=== PATIENT | female | born 1940 | race African-American/Black ===

== ENCOUNTER 2018-09-19 07:02 | Emergency (ER) | payer OTHER, MEDICARE ==
--- OUTSIDE RECORDS SUMMARY | 2018-09-19 07:05 | XMS REPORT ---
:1940 Author Organization [facility] Address [address] [place] [address] Dr. Mcghee [address] [place] [id number] Care Team Providers Name Role Phone Unavailable Unavailable Unavailable Problems This patient has no known problems. Allergies, Adverse Reactions, Alerts This patient has no known allergies or adverse reactions. Medications This patient has no known medications.
--- NOTE | 2018-09-19 07:24 | EDPHYS ---
Physician Documentation [facility] Name: Eunice Seals Age: 78 yrs Sex: Female : 1940 Arrival Date: 09/19/2018 Time: 07:05 Bed 16 Private MD: Blaise Mortensen B ED Physician Misael Mathew HPI: 09/19 07:18 This 78 yrs old Black Female presents to ER via Unassigned with complaints of Leg rn Swelling. 07:18 Reports bilateral leg pain, for about 1 month, no fever/trauma/redness/rash. 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 Has been on gabapentin in past but taken off for unknown reason. Denies calf pain with exertion. Reports still works and pain starts in feet and radiates upward. Pain worse at night. Improved in AM. . Onset: The symptoms/episode began/occurred 1 month(s) ago. Severity of symptoms: At their worst the symptoms were mild in the emergency department the symptoms have improved. The patient has not experienced similar symptoms in the past. The patient has not recently seen a physician. Historical: - Allergies: 07:06 Lipitor; aa5 07:06 metformin; aa5 07:06 PENICILLINS; aa5 - Home Meds: 07:08 repaglinide 2 mg oral tab 1 tab 3 times per day [Active]; proglitazone 30mg daily aa5 [Active]; amlodipine 10 mg tab 1 tab once daily [Active]; levothyroxine 88 mcg tab 1 tab once daily [Active]; simvastatin 10 mg Oral tab 1 tab once daily [Active]; tizanidine 2 mg oral cap 3 times a day [Active]; hydroxyzine HCl 25 mg Oral tab at bedtime [Active]; ezetimibe oral oral 10mg daily [Active]; morantik 25mg [Active]; temisartan 80mg [Active]; latanoprost 0.005 % ophthalmic drop [Active]; - PMHx: 07:06 Diabetes - NIDDM; Hyperlipidemia; Hypertension; aa5 07:08 Thyroid problem; aa5 - PSHx: 07:08 Back; aa5 - Immunization history:: Flu vaccine is not up to date. - Social history:: Smoking status: Patient/guardian denies using tobacco. - Family history:: not pertinent. - Ebola Screening: : No symptoms or risks identified at this time. - Hospitalizations: : No recent hospitalization is reported. ROS: 07:18 Constitutional: Negative for fever, chills, and weight loss, Cardiovascular: Negative rn for chest pain, palpitations, and edema, Respiratory: Negative for shortness of breath, cough, wheezing, and pleuritic chest pain, MS/Extremity: + bilateral leg burning sensation Skin: Negative for injury, rash, and discoloration, Neuro: Negative for headache, weakness, numbness, tingling, and seizure. Exam: 07:18 Constitutional: This is a well developed, well nourished patient who is awake, alert, rn and in no acute distress. Respiratory: No increased work of breathing, no retractions or nasal flaring. Speaking full sentences Skin: Warm, dry with normal turgor. Normal color with no rashes, no lesions, and no evidence of cellulitis. MS/ Extremity: Pulses equal, no cyanosis. Neurovascular intact. Full, normal range of motion. Equal circumference. No tenderness of either LE. Neuro: Awake and alert, GCS 15, oriented to person, place, time, and situation. Cranial nerves II-XII grossly intact. Motor strength 5/5 in all extremities. Sensory grossly intact. Cerebellar exam normal. Normal gait. Vital Signs: 07:08 BP 126 / 67; Pulse 91; Resp 16 S; Temp 98.2(O); Pulse Ox 100% on R/A; Weight 59.87 kg aa5 (R); Height 5 ft. 4 in. (162.56 cm) (R); Pain 6/10; 07:08 Body Mass Index 22.66 (59.87 kg, 162.56 cm) aa5 MDM: 07:09 Patient medically screened. rn 07:18 Differential Diagnosis peripheral vascular disease, diabetic neuropathy, radiculopathy. rn Data reviewed: vital signs, nurses notes, and as a result, I will discharge patient. Counseling: I had a detailed discussion with the patient and/or guardian regarding: the historical points, exam findings, and any diagnostic results supporting the discharge/admit diagnosis, the need for outpatient follow up, to return to the emergency department if symptoms worsen or persist or if there are any questions or concerns that arise at home. Special discussion: I discussed with the patient/guardian in detail that at this point there is no indication for admission to the hospital. It is understood, however, that if the symptoms persist or worsen the patient needs to return immediately for re-evaluation. Based on the history and exam findings, there is no indication for further emergent testing or inpatient evaluation. I discussed with the patient/guardian the need to see the primary care provider for further evaluation of the symptoms. ED course: Equal circumference of legs, no sign of infection, no trauma, present for a month or more, more likely diabetic neuropathy in stocking distribution, will refer back to pcp for medication reconciliation and maybe needs to be back on gabapentin. . Administered Medications: No medications were administered Disposition: 09/19/18 07:24 Discharged to Home. Impression: Diabetic polyneuropathy. - Condition is Stable. - Discharge Instructions: Peripheral Neuropathy, Diabetic Neuropathy. - Medication Reconciliation Form, Thank You Letter, Antibiotic Education, Prescription Opioid Use form. - Follow up: Blaise Mortensen MD; When: 2 - 3 days; Reason: Recheck today's complaints, Re-evaluation by your physician. - Problem is an ongoing problem. - Symptoms have improved. Signatures: Misael Mathew MD MD rn Calderon, Audri, RN RN aa5 Corrections: (The following items were deleted from the chart) 07:39 07:24 09/19/2018 07:24 Discharged to Home. Impression: Diabetic polyneuropathy. aa5 Condition is Stable. Forms are Medication Reconciliation Form, Thank You Letter, Antibiotic Education, Prescription Opioid Use. Follow up: Blaise Mortensen; When: 2 - 3 days; Reason: Recheck today's complaints, Re-evaluation by your physician. Problem is an ongoing problem. Symptoms have improved. rn
--- NOTE | 2018-09-19 07:24 | ER ---
Nurse's Notes [facility] Name: Eunice Seals Age: 78 yrs Sex: Female : 1940 Arrival Date: 09/19/2018 Time: 07:05 Bed 16 Private MD: Blaise Mortensen B Diagnosis: Diabetic polyneuropathy Presentation: 09/19 07:06 Presenting complaint: Patient states: "I've been dealing with leg swelling since about aa5 a month ago". Pt c/o cezar leg swelling and burning radiating up cezar legs. 07:06 Transition of care: patient was not received from another setting of care. Onset of aa5 symptoms was 2018. Risk Assessment: Do you want to hurt yourself or someone else? Patient reports no desire to harm self or others. Initial Sepsis Screen: Does the patient meet any 2 criteria? No. Patient's initial sepsis screen is negative. Does the patient have a suspected source of infection? No. Patient's initial sepsis screen is negative. Care prior to arrival: None. 07:06 Acuity: JOSE 4 aa5 07:06 Method Of Arrival: Ambulatory aa5 Historical: - Allergies: 07:06 Lipitor; aa5 07:06 metformin; aa5 07:06 PENICILLINS; aa5 - Home Meds: 07:08 repaglinide 2 mg oral tab 1 tab 3 times per day [Active]; proglitazone 30mg daily aa5 [Active]; amlodipine 10 mg tab 1 tab once daily [Active]; levothyroxine 88 mcg tab 1 tab once daily [Active]; simvastatin 10 mg Oral tab 1 tab once daily [Active]; tizanidine 2 mg oral cap 3 times a day [Active]; hydroxyzine HCl 25 mg Oral tab at bedtime [Active]; ezetimibe oral oral 10mg daily [Active]; morantik 25mg [Active]; temisartan 80mg [Active]; latanoprost 0.005 % ophthalmic drop [Active]; - PMHx: 07:06 Diabetes - NIDDM; Hyperlipidemia; Hypertension; aa5 07:08 Thyroid problem; aa5 - PSHx: 07:08 Back; aa5 - Immunization history:: Flu vaccine is not up to date. - Social history:: Smoking status: Patient/guardian denies using tobacco. - Family history:: not pertinent. - Ebola Screening: : No symptoms or risks identified at this time. - Hospitalizations: : No recent hospitalization is reported. Screenin:08 Abuse screen: Denies threats or abuse. Nutritional screening: No deficits noted. aa5 Tuberculosis screening: No symptoms or risk factors identified. Fall Risk None identified. Assessment: 07:08 General: Appears comfortable, Behavior is calm, cooperative. Pain: Complains of pain in aa5 right leg and left leg Pain radiates to up the leg Pain currently is 6 out of 10 on a pain scale. Quality of pain is described as burning, Pain began 1 month ago Is continuous. Neuro: Level of Consciousness is awake, alert, obeys commands, Oriented to person, place, time, situation, Gait is steady. Cardiovascular: Heart tones S1 S2 present Pulses are 3+ in right dorsalis pedis artery and left dorsalis pedis artery Mild swelling noted to bilateral legs, non-pitting, shins appear shiny. Rhythm is regular. Respiratory: Airway is patent Respiratory effort is even, unlabored, Respiratory pattern is regular, symmetrical. GI: No signs and/or symptoms were reported involving the gastrointestinal system. : No signs and/or symptoms were reported regarding the genitourinary system. EENT: No signs and/or symptoms were reported regarding the EENT system. Derm: Skin is dry, Skin is normal, Skin temperature is warm. Musculoskeletal: Range of motion: intact in all extremities. 07:38 Neuro: Level of Consciousness is awake, alert, obeys commands, Oriented to person, aa5 place, time, situation. Respiratory: Airway is patent Respiratory effort is even, unlabored, Respiratory pattern is regular, symmetrical. Derm: Skin is dry, Skin is normal, Skin temperature is warm. Vital Signs: 07:08 BP 126 / 67; Pulse 91; Resp 16 S; Temp 98.2(O); Pulse Ox 100% on R/A; Weight 59.87 kg aa5 (R); Height 5 ft. 4 in. (162.56 cm) (R); Pain 6/10; 07:08 Body Mass Index 22.66 (59.87 kg, 162.56 cm) aa5 ED Course: 07:05 Patient arrived in ED. am2 07:06 Blaise Mortensen MD is Private Physician. am2 07:06 Arm band placed on Patient placed in an exam room, on a stretcher. aa5 07:06 Patient has correct armband on for positive identification. Placed in gown. Bed in low aa5 position. Call light in reach. Side rails up X 1. 07:09 Misael Mathew MD is Attending Physician. rn 07:20 Elysia Gay RN is Primary Nurse. aa5 07:23 Triage completed. aa5 07:23 Blaise Mortensen MD is Referral Physician. rn 07:38 No provider procedures requiring assistance completed. Patient did not have IV access aa5 during this emergency room visit. Administered Medications: No medications were administered Outcome: 07:24 Discharge ordered by . rn 07:38 Discharged to home ambulatory. aa5 07:38 Condition: good 07:38 Discharge instructions given to patient, Instructed on discharge instructions, follow up and referral plans. Demonstrated understanding of instructions, follow-up care. 07:39 Patient left the ED. aa5 Signatures: Misael Mathew MD MD rn Calderon, Audri, RN RN aa5 Karie Urena
[2018-09-19 07:46] VITALS: BP 126/67; TEMP 98.2; O2SAT 100
== END 2018-09-19 07:39 | disposition home or self-care (01) ==
LOC: ER 07:02
DX: E11.42 Type 2 diabetes mellitus with diabetic polyneuropathy (principal); I10 Essential (primary) hypertension; E78.5 Hyperlipidemia, unspecified; Z88.0 Allergy status to penicillin; Z88.8 Allergy status to other drugs, medicaments and biological substances
CPT/HCPCS: 99281

== ENCOUNTER 2019-06-03 04:14 | Emergency (ER) | payer OTHER ==
--- OUTSIDE RECORDS SUMMARY | 2019-06-03 04:17 | XMS REPORT ---
:1940 [facility] Address [address] [place] [address] Dr. Mcghee [address] [place] [id number] Care Team Providers Name Role Phone Unavailable Unavailable Unavailable Problems This patient has no known problems. Allergies, Adverse Reactions, Alerts This patient has no known allergies or adverse reactions. Medications This patient has no known medications.
[2019-06-03 05:16] LABS: Protime INR 1.1
[2019-06-03 05:17] LABS: Absolute Lymphocytes (CBC) 1.6 K/uL (0.7-4.9); Basophils % 0.5 % (0-1.3); Lymphocytes % 25.5 % (15.3-44.8); MPV 8.5 fL (7.6-11.3); RBC Red Blood Cell Count 3.86 M/uL (3.86-4.86)
[2019-06-03 05:33] LABS: ALT/SGPT 24 U/L (12-78); AST/SGOT 20 U/L (15-37); Albumin 3.7 g/dL (3.4-5.0); Alkaline Phosphatase 97 U/L (45-117); BUN Blood Urea Nitrogen 17 mg/dL (7-18); Bicarbonate 28 mmol/L (21-32); Bilirubin Direct 0.1 mg/dL (0-0.2); Bilirubin Total 0.4 mg/dL (0.2-1.0); Glucose Level 126 mg/dL (74-106); Magnesium 2.1 mg/dL (1.8-2.4); NT PRO-BNP 55 pg/mL (<450); Protein, Total 6.7 g/dL (6.4-8.2); Sodium Level 140 mmol/L (136-145); Troponin (Emerg Dept Use Only) < 0.02 ng/mL (0.0-0.045)
--- NOTE | 2019-06-03 06:53 | EKG ---
Test Date: 2019-06-03 Test Time: 04:27:16 Clerk Supervisor: JOSÉ MIGUEL MEASUREMENT RESULTS: Intervals: Rate: 85 IA: 148 QRSD: 74 QT: 398 QTc: 473 [place]: P: 74 IA: 148 QRS: 54 T: 66 INTERPRETIVE STATEMENTS: Normal sinus rhythm Biatrial enlargement Abnormal ECG Compared to ECG 03/28/2016 11:18:41 Atrial abnormality now present Ventricular premature complex(es) no longer present Prolonged QT interval no longer present Electronically Signed On 06-03-19 06:53:01 TOW FEEDER by Heath Dent
--- NOTE | 2019-06-03 07:57 | ER ---
Nurse's Notes [facility] Name: Eunice Seals Age: 79 yrs Sex: Female : 1940 Arrival Date: 06/03/2019 Time: 04:17 Bed 7 Private MD: Diagnosis: Concussion without loss of consciousness;Chest pain, unspecified Presentation: 06/03 04:23 Presenting complaint: Patient states: headache since yesterday evening. pt stated she ak1 fell last Sunday hitting the back of her head, couldn't sleep tonight so she came here. pt stated she has sharp intermittent chest pain to center of her chest that last 1 minuet. Transition of care: patient was not received from another setting of care. Onset of symptoms was June 03, 2019. Risk Assessment: Do you want to hurt yourself or someone else? Patient reports no desire to harm self or others. Initial Sepsis Screen: Does the patient meet any 2 criteria? No. Patient's initial sepsis screen is negative. Does the patient have a suspected source of infection? No. Patient's initial sepsis screen is negative. Care prior to arrival: None. 04:23 Method Of Arrival: Ambulatory ak1 04:23 Acuity: JOSE 3 ak1 Triage Assessment: 04:27 General: Appears in no apparent distress. Behavior is calm, cooperative. ak1 Historical: - Allergies: 04:27 Lipitor; ak1 04:27 metformin; ak1 04:27 PENICILLINS; ak1 - Home Meds: 05:31 aspirin 81 mg Oral chew 1 tab [Active]; hydroxyzine HCl 25 mg Oral tab 1 tab at bedtime ea [Active]; levothyroxine 88 mcg tab 1 tab once daily [Active]; ezetimibe Oral 10mg daily [Active]; temisartan 80mg [Active]; repaglinide 2 mg Oral tab 1 tab 3 times per day [Active]; simvastatin 10 mg Oral tab 1 tab once daily [Active]; - PMHx: 04:27 Diabetes - NIDDM; Hyperlipidemia; Hypertension; Thyroid problem; ak1 - PSHx: 04:27 Back sx; Cholecystectomy; Appendectomy; Hysterectomy; ak1 - Immunization history:: Flu vaccine is up to date. - Social history:: Smoking status: Patient/guardian denies using tobacco. - Ebola Screening: : No symptoms or risks identified at this time. Screenin:29 Abuse screen: Denies threats or abuse. Nutritional screening: No deficits noted. ea Tuberculosis screening: No symptoms or risk factors identified. Fall Risk None identified. Assessment: 04:28 General: Appears in no apparent distress. Behavior is calm, cooperative, appropriate ea for age. Pain: Complains of pain in chest Pain does not radiate. Neuro: Level of Consciousness is awake, alert, obeys commands, Oriented to person, place, time, situation. Cardiovascular: Patient's skin is warm and dry. Respiratory: Airway is patent Respiratory effort is even, unlabored, Respiratory pattern is regular, symmetrical. Derm: Skin is pink, warm \T\ dry. 05:32 Reassessment: Patient and/or family updated on plan of care and expected duration. Pain ea level reassessed. Patient is alert, oriented x 3, equal unlabored respirations, skin warm/dry/pink. 06:07 Reassessment: Patient and/or family updated on plan of care and expected duration. Pain ea level reassessed. Patient is alert, oriented x 3, equal unlabored respirations, skin warm/dry/pink. Awaiting on CT results. 07:15 Reassessment: Patient and/or family updated on plan of care and expected duration. Pain vc level reassessed. Patient is alert, oriented x 3, equal unlabored respirations, skin warm/dry/pink. Patient denies pain at this time. Patient states feeling better. Vital Signs: 04:27 BP 192 / 91; Pulse 82; Resp 16; Temp 97.7(TE); Pulse Ox 100% on R/A; Weight 56.25 kg ak1 (R); Height 5 ft. 4 in. (162.56 cm) (R); Pain 8/10; 05:33 BP 163 / 81; Pulse 79; Resp 18; Pulse Ox 98% on R/A; ea 06:07 BP 164 / 75; Pulse 71; Resp 18; Temp 97.6; Pulse Ox 98% ; ea 07:15 BP 175 / 82; Pulse 70; Resp 14; Pulse Ox 100% on R/A; Pain 0/10; vc 08:00 BP 159 / 75; Pulse 57; Resp 15; Temp 98.0(TE); Pulse Ox 100% on R/A; Pain 0/10; vc 04:27 Body Mass Index 21.28 (56.25 kg, 162.56 cm) ak1 ED Course: 04:17 Patient arrived in ED. jg7 04:19 Esa Simpson MD is Attending Physician. tw4 04:26 Triage completed. ak1 04:27 Arm band placed on Patient placed in an exam room, on a stretcher, on pulse oximetry, ak1 Patient notified of wait time. 04:28 Tianna Rudd, RN is Primary Nurse. ea 04:30 Patient has correct armband on for positive identification. Bed in low position. Call ea light in reach. Side rails up X2. ball rolling machine operator on. 04:30 Patient maintains SpO2 saturation greater than 95% on room air. ea 04:33 Inserted saline lock: 20 gauge in left antecubital area, using aseptic technique. Blood ea collected. Per Sakshi GODDARD. 07:19 Repeat lab(s) drawn. by ar, sent to lab. vc 07:25 Troponin (emerg Dept Use Only) Sent. vc 08:06 No provider procedures requiring assistance completed. vc 08:20 IV discontinued, intact, bleeding controlled, No redness/swelling at site. Pressure aa5 dressing applied. Administered Medications: No medications were administered Outcome: 07:57 Discharge ordered by . ma2 08:19 Discharged to home ambulatory. aa5 08:19 Condition: good 08:19 Discharge instructions given to patient, Instructed on discharge instructions, follow up and referral plans. Demonstrated understanding of instructions, follow-up care. 08:21 Patient left the ED. aa5 Signatures: Elysia Gay RN RN aa5 Lyla Busch RN RN ak1 Tianna Rudd RN RN ea Alzahri, Mohammad, MD MD ma2 Wadley, Terrence, MD MD tw4 Wendy Troy jg7 Carrie Smith RN RN vc Corrections: (The following items were deleted from the chart) 07:25 07:25 Pain: Pain began vc vc
--- NOTE | 2019-06-03 07:58 | EDPHYS ---
Physician Documentation [facility] Name: Eunice Seals Age: 79 yrs Sex: Female : 1940 Arrival Date: 06/03/2019 Time: 04:17 Bed 7 Private MD: ED Physician Esa Simpson HPI: 06/03 05:09 This 79 yrs old Black Female presents to ER via Ambulatory with complaints of Chest tw4 Pain, Headache. 05:09 The patient or guardian reports chest pain that is located primarily in the anterior tw4 chest wall, left. Onset: just prior to arrival. The pain does not radiate. Associated signs and symptoms: The patient has no apparent associated signs or symptoms. The chest pain is described as sharp. Duration: The patient or guardian reports a single episode, that is now resolved. Severity of pain: At its worst the pain was mild in the emergency department the pain is unchanged. Historical: - Allergies: 04:27 Lipitor; ak1 04:27 metformin; ak1 04:27 PENICILLINS; ak1 - Home Meds: 05:31 aspirin 81 mg Oral chew 1 tab [Active]; hydroxyzine HCl 25 mg Oral tab 1 tab at bedtime ea [Active]; levothyroxine 88 mcg tab 1 tab once daily [Active]; ezetimibe Oral 10mg daily [Active]; temisartan 80mg [Active]; repaglinide 2 mg Oral tab 1 tab 3 times per day [Active]; simvastatin 10 mg Oral tab 1 tab once daily [Active]; - PMHx: 04:27 Diabetes - NIDDM; Hyperlipidemia; Hypertension; Thyroid problem; ak1 - PSHx: 04:27 Back sx; Cholecystectomy; Appendectomy; Hysterectomy; ak1 - Immunization history:: Flu vaccine is up to date. - Social history:: Smoking status: Patient/guardian denies using tobacco. - Ebola Screening: : No symptoms or risks identified at this time. ROS: 05:09 Constitutional: Negative for fever, chills, and weight loss, Eyes: Negative for injury, tw4 pain, redness, and discharge. 05:09 Respiratory: Negative for shortness of breath, cough, wheezing, and pleuritic chest pain, Abdomen/GI: Negative for abdominal pain, nausea, vomiting, diarrhea, and constipation, Back: Negative for injury and pain, MS/Extremity: Negative for injury and deformity, Skin: Negative for injury, rash, and discoloration, Neuro: Negative for headache, weakness, numbness, tingling, and seizure. 05:09 Cardiovascular: Positive for chest pain, Negative for edema, orthopnea, palpitations. Exam: 05:09 Constitutional: This is a well developed, well nourished patient who is awake, alert, tw4 and in no acute distress. Head/Face: Normocephalic, atraumatic. Chest/axilla: Normal chest wall appearance and motion. Nontender with no deformity. No lesions are appreciated. Cardiovascular: Regular rate and rhythm with a normal S1 and S2. No gallops, murmurs, or rubs. Normal PMI, no JVD. No pulse deficits. Respiratory: Lungs have equal breath sounds bilaterally, clear to auscultation and percussion. No rales, rhonchi or wheezes noted. No increased work of breathing, no retractions or nasal flaring. Abdomen/GI: Soft, non-tender, with normal bowel sounds. No distension or tympany. No guarding or rebound. No evidence of tenderness throughout. Back: No spinal tenderness. No costovertebral tenderness. Full range of motion. MS/ Extremity: Pulses equal, no cyanosis. Neurovascular intact. Full, normal range of motion. Neuro: Awake and alert, GCS 15, oriented to person, place, time, and situation. Cranial nerves II-XII grossly intact. Motor strength 5/5 in all extremities. Sensory grossly intact. Cerebellar exam normal. Normal gait. Vital Signs: 04:27 BP 192 / 91; Pulse 82; Resp 16; Temp 97.7(TE); Pulse Ox 100% on R/A; Weight 56.25 kg ak1 (R); Height 5 ft. 4 in. (162.56 cm) (R); Pain 8/10; 05:33 BP 163 / 81; Pulse 79; Resp 18; Pulse Ox 98% on R/A; ea 06:07 BP 164 / 75; Pulse 71; Resp 18; Temp 97.6; Pulse Ox 98% ; ea 07:15 BP 175 / 82; Pulse 70; Resp 14; Pulse Ox 100% on R/A; Pain 0/10; vc 08:00 BP 159 / 75; Pulse 57; Resp 15; Temp 98.0(TE); Pulse Ox 100% on R/A; Pain 0/10; vc 04:27 Body Mass Index 21.28 (56.25 kg, 162.56 cm) ak1 MDM: 04:20 Patient medically screened. tw4 07:55 Differential diagnosis: costochondritis, esophagitis, gastritis. Data reviewed: vital ma2 signs, nurses notes. Counseling: I had a detailed discussion with the patient and/or guardian regarding: the historical points, exam findings, and any diagnostic results supporting the discharge/admit diagnosis, the presence of at least one elevated blood pressure reading (>120/80) during this emergency department visit, the need for outpatient follow up. ED course: signed out to me by dr. awad as atypical chest pain alexander score zero,, repeated trop in negative no chest pain in er.. will discharge home . 06/03 04:20 Order name: Basic Metabolic Panel tw4 06/03 04:20 Order name: CBC with Diff tw4 06/03 04:20 Order name: LFT's tw4 06/03 04:20 Order name: Magnesium tw4 06/03 04:20 Order name: NT PRO-BNP tw4 06/03 04:20 Order name: PT-INR tw4 06/03 04:20 Order name: Troponin (emerg Dept Use Only) tw4 06/03 05:18 Order name: Protime (+INR); Complete Time: 06:08 EDMS 06/03 05:22 Order name: CBC with Automated Diff; Complete Time: 06:08 EDMS 06/03 05:33 Order name: Basic Metabolic Panel; Complete Time: 06:08 EDMS 06/03 05:33 Order name: Liver (Hepatic) Function; Complete Time: 06:08 EDMS 06/03 05:33 Order name: Troponin (Emerg Dept Use Only); Complete Time: 06:08 EDMS 06/03 05:33 Order name: NT PRO-BNP; Complete Time: 06:08 EDMS 06/03 05:33 Order name: Magnesium; Complete Time: 06:08 EDMS 06/03 04:20 Order name: XRAY Chest (1 view) tw4 06/03 04:20 Order name: EKG; Complete Time: 04:21 tw4 06/03 04:20 Order name: Cardiac monitoring; Complete Time: 04:30 tw4 12/17 04:20 Order name: EKG - Nurse/Tech; Complete Time: 04:30 06/03 04:20 Order name: IV Saline Lock; Complete Time: 04:35 06/03 04:20 Order name: Labs collected and sent; Complete Time: 04:35 06/03 04:20 Order name: O2 Per Protocol; Complete Time: 04:30 06/03 04:20 Order name: O2 Sat Monitoring; Complete Time: 04:30 06/03 05:08 Order name: CT Head Brain wo Cont 06/03 06:54 Order name: Troponin (emerg Dept Use Only) 4 06/03 07:46 Order name: Troponin (Emerg Dept Use Only) EDCO EC:09 Rate is 85 beats/min. Rhythm is regular. QRS [place] is Normal. [place] interval is normal. QRS tw4 interval is normal. QT interval is normal. No Q waves. T waves are Normal. No ST changes noted. Clinical impression: Normal ECG. Interpreted by me. Reviewed by me. Administered Medications: No medications were administered Disposition: 06/03/19 07:57 Discharged to Home. Impression: Concussion without loss of consciousness, Chest pain, unspecified. - Condition is Stable. - Discharge Instructions: Nonspecific Chest Pain, Head Injury, Adult, Pain Without a Known Cause. - Antibiotic Education, Medication Reconciliation Form, SBAR form, Thank You Letter, Prescription Opioid Use form. - Follow up: Private Physician; When: Upon discharge from the Emergency Department; Reason: Recheck today's complaints, Continuance of care. - Problem is new. - Symptoms have improved. Signatures: Dispatcher [employer] EDCO Elysia Gay, RN RN aa5 Lyla Busch RN RN ak1 Tianna Rudd RN RN ea Alzahri, Mohammad, MD MD ma2 Esa Simpson MD MD tw4 Corrections: (The following items were deleted from the chart) 08:21 07:57 06/03/2019 07:57 Discharged to Home. Impression: Concussion without loss of aa5 consciousness; Chest pain, unspecified. Condition is Stable. Discharge Instructions: Nonspecific Chest Pain, Head Injury, Adult, Pain Without a Known Cause. Forms are Medication Reconciliation Form, SBAR form, Thank You Letter, Prescription Opioid Use, Antibiotic Education. Follow up: Private Physician; When: Upon discharge from the Emergency Department; Reason: Recheck today's complaints, Continuance of care. Problem is new. Symptoms have improved. ma2
--- NOTE | 2019-06-03 08:13 | RAD REPORT ---
EXAM DESCRIPTION: [facility] Single View06/03/2019 4:54 am CLINICAL HISTORY: Chest pain COMPARISON: November 2018 FINDINGS: The lungs appear clear of acute infiltrate. The heart is normal size IMPRESSION: No acute abnormalities displayed
[2019-06-03 08:33] VITALS: TEMP 97.6
[2019-06-03 08:35] VITALS: BP 175/82; O2SAT 100
--- NOTE | 2019-06-03 12:19 | RAD REPORT ---
EXAM DESCRIPTION: CT - Head Brain Wo Cont - 06/03/2019 6:16 am CLINICAL HISTORY: The patient is 79 years old and is Female; HEADACHE TECHNIQUE: Axial computed tomography images of the head/brain without intravenous contrast. Sagitt al and coronal reformatted images were created and reviewed. This CT exam was performed using one o r more of the following dose reduction techniques: automated exposure control, adjustment of the mA and/or kV according to patient size, and/or use of iterative reconstruction technique. COMPARISON: No relevant prior studies available. FINDINGS: BRAIN: Unremarkable. The álvarez-white matter differentiation is preserved . No hemorrhag e. No significant white matter disease. No edema. No extra-axial fluid collections. VENTRICLES: Unremarkable. No ventriculomegaly. BONES/JOINTS: No acute fracture. SOFT TISSUES: Unremarkable. SINUSES: Unremarkable as visualized. No acute sinusitis. MASTOID AIR CELLS: Unremarkable as visualized. No mastoid effusion. ORBITS: Unremarkable as visualized. IMPRESSION: No acute intracranial findings. Electronically signed by: Sosa Uriarte MD 06/03/2019 6:09 AM EMERGENCY ROOM PHYSICIAN Due to temporary technical issues with the PACS/Fluency reporting system, reports are being signed by the in house radiologist as a courtesy to ensure prompt reporting. The interpreting radiologist is f ully responsible for the content of the report.
== END 2019-06-03 08:21 | disposition home or self-care (01) ==
LOC: ER 04:14
DX: S06.0X0A Concussion without loss of consciousness, initial encounter (principal); W19.XXXA Unspecified fall, initial encounter; Y93.9 Activity, unspecified; Y92.9 Unspecified place or not applicable; I10 Essential (primary) hypertension; E78.5 Hyperlipidemia, unspecified; E11.9 Type 2 diabetes mellitus without complications; E07.9 Disorder of thyroid, unspecified; Z79.82 Long term (current) use of aspirin; Z88.0 Allergy status to penicillin; Z88.8 Allergy status to other drugs, medicaments and biological substances
CPT/HCPCS: 36415; 70450; 71045; 80048; 80076; 83735; 83880; 84484; 85025; 85610; 93005; 99285

== ENCOUNTER 2023-10-17 14:12 | Emergency (ER) | payer OTHER ==
--- OUTSIDE RECORDS SUMMARY | 2023-10-17 14:14 | XMS REPORT | Continuity of Care Document ---
Author Name Unknown Address [address] [place] [address] [facility] thconnect Address [address] [place] [address] Care Team Providers Care Glove Maker Name Role Phone Blaise Mortensen Primary Care Physician [phone] SHAREE ZALDIVAR Attending Clinician Unavaila [place] Attending Clinician [phone] VINCENT BERNARD Attending Clinician Unavailable Trisha Bailon RN Attending Clinician UnavailGeena Francis DO Attending Clinician [phone] Patricia VELAZQUEZ, Dawn Attending Clinician [phone] DAWN GOMEZ Attending Clinician Unavailable Sabina Craig RN Attending Clinician Unavailable Only, Ang Db Test Attending Clinician UnavailAlvina Yang MD Attending Clinician [phone] ALVINA VARMA Attending Clinician Unavailable BK SOSA Attending Clinician UnavailLUIS MANUEL [place] Attending Clinician Unavailable JONATAN CA Attending Clinician Viv Elizabeth RN, Sonal Oshea Attending Clinician [phone] SERGIO SUH Attending Clinician Unavailable Suzie NIX, Michelle G Attending Clinician [phone] Ana VELAZQUEZ, Sergio Attending Clinician [phone] Diego_Antonella Attending Clinician Unavailable Dawn Gomez MD Admitting Clinician [phone] DAWN GOMEZ Admitting Clinician Unavailable SERGIO SUH Admitting Clinician Unavailable Sergio Suh MD Admitting Clinician [phone] Diego_Antonella Admitting Clinician Unavailable Payers Payer Name Policy Type Policy Number Effective Date Expirati on Date Source [employer] [id number] 2023 00:00:00 Problems Condition Name Condition Details Condition Category Status Onset Date Resolution Date Last Treatment Date Treating Clinician Comments Source Chest pain Chest pain Disease Active 10-10 00:00: 00 [facility] Dyslipidem ia Dyslipidem ia Disease Active 10-10 00:00: 00 [facility] Chest pain, rule out acute myocardial infarction Chest pain, rule out acute myocardial infarction Disease Active 09-30 00:00: 00 [facility] Essential hypertensi on Essential hypertensi on Disease Active 09-30 00:00: 00 [facility] Primary hypothyroi dism Primary hypothyroi dism Disease Active 01-01 00:00: 00 [facility] Left thyroid nodule Left thyroid nodule Disease Active 01-01 00:00: 00 [facility] Type 2 diabetes mellitus without complicati on, without long-term current use of insulin Type 2 diabetes mellitus without complicati on, without long-term current use of insulin Disease Active 09-20 00:00: 00 [facility] Allergies, Adverse Reactions, Alerts Allergy Name Allergy Type Status Severity Reaction(s) Onset Date Inactive Date Treating Clinician Comments Source Penicill ins Propensi ty to adverse reaction s Active Swelling 09-20 00:00: 00 [facility] ATORVAST ATIN CALCIUM DRUG INGREDI Active SOB 09-20 00:00: 00 [facility] PENICILL INS Drug Class Active Swelling 09-20 00:00: 00 [facility] Penicill ins Propensi ty to adverse reaction s Active Swelling 09-20 00:00: 00 [facility] Atorvast atin Calcium Propensi ty to adverse reaction s Active Shortness of Breath 09-20 00:00: 00 [facility] Social History Social Habit Start Date Stop Date Quantity Comments Source Exposure to SARS-CoV-2 (event) 2022-10-06 00:00:00 2022-10-16 10:09:00 Not sure [facility] Alcohol intake 2022-10-16 00:00:00 2022-10-16 00:00:00 Current non-drinker of alcohol (finding) [facility] Tobacco use and exposure 2017-05-16 00:00:00 2017-05-16 00:00:00 Smokeless tobacco non-user [facility] Sex Assigned At 1940 00:00:00 1940 00:00:00 [facility] Smoking Status Start Date Stop Date Source Never smoked tobacco [facility] Medications Ordered Medication Name Filled Medication Name Start Date Stop Date Current Medication? Ordering Clinician Indication Dosage Frequency Signature (SIG) Comments Components Source dexamethaso ne sod phos PF injection 10 mg 10-16 15:45: 00 10-16 15:45 :00 No 10mg 10 mg, Intramuscu lar, ONCE, 1 dose, On Sun10/16/22 at 1045, 1 mL [facility] ketorolac (TORADOL) injection 30 mg 10-16 15:45: 00 10-16 15:44 :00 No 30mg 30 mg, Intramuscu lar, ONCE, 1 dose, On Sun10/16/22 at 1045, СВЕТЛАНА [facility] methocarbam oL (ROBAXIN-75 0) 750 mg tablet 10-16 00:00: 00 Yes [id number] 750mg Take 1 tablet by mouth 4 (four) times daily as needed for Pain (scale 7-10). [facility] traMADOL 50 mg tablet 10-10 17:53: 02 Yes 50mg Take 50 mg by mouth 2 (two) times daily. [facility] aspirin 81 mg EC tablet 10-10 17:53: 02 Yes 81mg Take 81 mg by mouth daily. [facility] pioglitazon e 30 mg tablet 10-10 17:53: 02 Yes 30mg Take 30 mg by mouth daily. [facility] simvastatin 10 mg tablet 10-10 17:53: 02 Yes 10mg Take 10 mg by mouth at bedtime. [facility] hydrALAZINE 25 mg tablet 10-01 00:00: 00 Yes [id number] 25mg Take 1 tablet by mouth 2 (two) times daily. [facility] ezetimibe 10 mg tablet 2017-06 00:00: 00 Yes TK 1 T PO QD [facility] levothyroxi ne 88 mcg tablet 08-28 00:00: 00 Yes TK 1 T PO QD [facility] telmisartan 80 mg tablet 08-24 00:00: 00 Yes TK 1 T PO QD [facility] ergocalcife rol, vitamin d2, 50,000 unit capsule 08-05 00:00: 00 Yes TK 1 C PO Q 2 WEEKS [facility] Vital Signs Vital Name Observation Time Observation Value Comments S ource Systolic blood pressure 2022-10-16 15:11:00 129 mm[Hg] [facility] Diastolic blood pressure 2022-10-16 15:11:00 77 mm[Hg] [facility] Heart rate 2022-10-16 15:11:00 100 /min [facility] Body temperature 2022-10-16 15:11:00 37.28 Kimberly [facility] Respiratory rate 2022-10-16 15:11:00 18 /min [facility] Body height 2022-10-16 15:11:00 162.6 cm [facility] Body weight 2022-10-16 15:11:00 62.143 kg [facility] BMI 2022-10-16 15:11:00 23.52 kg/m2 [facility] Oxygen saturation in Arterial blood by Pulse oximetry 2022-10-16 15:11:00 100 /min [facility] Procedures Procedure Date / Time Performed Performing Clinicia n Source ASSIGNMENT OF BENEFITS 2022-10-16 15:51:22 Docto r Unassigned, [place] [facility] CONSENT/REFUSAL FOR DIAGNOSIS AND TREATMENT 2022-10-16 15:14:08 Doctor Unassigned, [place] [facility] CONSENT/REFUSAL FOR DIAGNOSIS AND TREATMENT 2022-10-16 15:05:00 Doctor Unassigned, [place] [facility] Encounters Start Date/Time End Date/Time Encounter Type Admission Type Attending [facility] Care Facility Care Department Encounter ID Source 2023-05-09 14:00:00 2023-05-09 14:00:00 Outpatient SHAREE JIMENES [facility] [id number] [facility] 2022-10-16 10:12:00 2022-10-16 11:04:00 Emergency Vincent Bernard [facility] [id number] [facility] 2022-10-16 10:12:00 2022-10-16 11:04:00 Emergency X VINCENT BERNARD [facility] ERT [id number] [facility] 2021-10-11 00:00:00 2021-10-11 00:00:00 Transition of Care Trisha Bailon [id number] [facility] 2021-10-10 01:19:00 2021-10-10 16:00:00 Emergency Geena Lopez Adnan [facility] [id number] [id number] [facility] 2021-10-10 01:19:00 2021-10-10 16:00:00 Outpatient DAWN TAI [facility] [id number] [facility] 2021-06-26 00:00:00 2021-06-26 00:00:00 Telephone Sabina Craig [facility] [id number] [facility] 2021-06-25 11:30:00 2021-06-25 11:45:00 Laboratory Only Only, Lamonte Varma [facility] [id number] [facility] 2021-06-25 11:30:00 2021-06-25 11:30:00 Outpatient ALVINA BARNES [facility] [id number] [facility] 2020-09-04 11:45:00 2020-09-04 11:45:00 Outpatient [facility] [id number] [facility] 2020-08-14 13:15:00 2020-08-14 13:15:00 Outpatient [facility] [id number] [facility] 2020-07-20 14:20:00 2020-07-20 14:20:00 Outpatient BK MCGEE [facility] [id number] [facility] 2020-06-23 09:00:00 2020-06-23 09:00:00 Outpatient BK MCGEE [facility] [id number] [facility] 2020-06-13 14:00:00 2020-06-13 14:00:00 Outpatient LUIS MANUEL ALMAGUER [facility] [id number] [facility] 2020-06-07 11:00:00 2020-06-07 11:00:00 Outpatient JONATAN RAMEY [facility] [id number] [facility] 2019-10-03 00:00:00 2019-10-03 00:00:00 Transition of Care Clara Sonal Dayo Peck [id number] 2019-10-01 11:22:57 2019-10-02 10:00:00 Outpatient José Miguel SERGIO SUH [facility] [id number] [facility] 2019-10-01 11:22:57 2019-10-02 10:00:00 Emergency Michelle Larsen [facility] [id number] 2019-10-01 05:01:00 2019-10-01 05:01:00 Outpatient Raju_P [facility] [id number] Kavita gandara [facility]
[2023-10-17] MEDS ORDERED: ONDANSETRON 4 MG/2 ML VIAL ONE (14:57)
[2023-10-17] MEDS ORDERED: KETOROLAC 30 MG/ML INJ ONE (14:58)
[2023-10-17] MEDS ORDERED: NA CHLORIDE 0.9% 1,000 ML ONE (14:58)
[2023-10-17 15:11] LABS: Absolute Lymphocytes (CBC) 1.8 K/uL (0.7-4.9); Absolute Monocytes 0.7 K/uL (0.1-1.3); Absolute Neutrophil 2.2 K/uL (1.8-8.0); Basophils % 0.9 % (0-1.3); Eosinophils % 0.1 % (0-4.4); Hematocrit 36.9 % (36.0-45.0); Lymphocytes % 37.2 % (15.3-44.8); MCH 29.4 pg (27.0-35.0); MCHC 32.6 g/dL (32.0-36.0); MCV 90.2 fL (80-100); Monocytes % 14.6 % (3.3-12.3); Neutrophils % 47.2 % (41.7-73.7); Platelets 267 thou/uL (152-406); RBC Red Blood Cell Count 4.09 M/uL (3.86-4.86); Red Cell Distribution Width 14.9 % (12.1-15.2)
[2023-10-17 15:29] LABS: Albumin 3.7 g/dL (3.4-5.0); Albumin/Globulin Ratio 0.9 (1.1-1.8); Anion Gap 7.3 mEq/L (5.0-15.0); Bilirubin Total 0.6 mg/dL (0.2-1.0); Globulin 3.9 g/dL (2.3-3.5); Potassium 3.3 mEq/L (3.5-5.1); Protein, Total 7.6 g/dL (6.4-8.2); Troponin High Sensitivity 24.5 pg/mL (<58.9)
--- NOTE | 2023-10-17 16:38 | RAD REPORT ---
EXAM DESCRIPTION: CTAbdomen Pelvis W Contrast - 10/17/2023 4:29 pm CLINICAL HISTORY: Abdominal pain. ABD PAIN COMPARISON: Chest For Pe Angio dated 10/17/2023 TECHNIQUE: Venous phase CT imaging of the abdomen and pelvis was performed with 100 ml non-ionic IV contrast. All CT scans are performed using dose optimization technique as appropriate and may include automated exposure control or mA/KV adjustment according to patient size. FINDINGS: The lung bases are clear. The liver, spleen, pancreas, adrenal glands and kidneys are within normal limits. Cholecystectomy. No bowel obstruction, free air, free fluid or abscess. Significant stool is present throughout the co lisa. Fecalization of distal small bowel loops is also seen. Nonvisualized appendix. No evidence of s ignificant lymphadenopathy. No suspicious bony findings. Postsurgical hardware lower lumbar spine. IMPRESSION: No acute intra-abdominal or pelvic finding.
--- NOTE | 2023-10-17 16:39 | RAD REPORT ---
EXAM DESCRIPTION: CT - Chest For Pe Angio - 10/17/2023 4:29 pm CLINICAL HISTORY: Chest pain. SWELLING COMPARISON: No comparisons TECHNIQUE: CT angiogram of the pulmonary arteries was performed with MIP. All CT scans are performed using dose optimization technique as appropriate and may include automated exposure control or mA/KV adjustment according to patient size. FINDINGS: No evidence of pulmonary thromboembolism. No acute aortic finding demonstrated. The lungs are clear. No significant pericardial or pleural fluid. No concerning bony finding. IMPRESSION: No evidence of pulmonary thromboembolism. No acute lung findings.
--- NOTE | 2023-10-17 16:53 | ER ---
Nurse's Notes [facility] Name: Eunice Seals Age: 83 yrs Sex: Female : 1940 Arrival Date: 10/17/2023 Time: 14:12 Bed 20 Private MD: Diagnosis: Abdominal pain, unspecified;Nausea;Diarrhea, unspecified Presentation: 10/16 14:36 Chief complaint: Patient states: Abdominal pain since Sunday along with nausea. nj1 14:36 Coronavirus screen: Vaccine status: Patient reports receiving the 2nd dose of the covid nj1 vaccine. Ebola Screen: Patient denies travel to an Ebola-affected area in the 21 days before illness onset. Initial Sepsis Screen: Does the patient meet any 2 criteria? No. Patient's initial sepsis screen is negative. Does the patient have a suspected source of infection? No. Patient's initial sepsis screen is negative. Risk Assessment: Do you want to hurt yourself or someone else? Patient reports no desire to harm self or others. Onset of symptoms was October 14, 2023. 14:36 Method Of Arrival: Wheelchair nj1 14:36 Acuity: JOSE 3 nj1 Historical: - Allergies: 14:36 Lipitor; mb9 14:36 metformin; mb9 14:36 PENICILLINS; mb9 - Home Meds: 14:36 amlodipine 10 mg tab 1 tab once daily [Active]; aspirin 81 mg Oral chew 1 tab [Active]; mb9 ezetimibe Oral 10mg daily [Active]; hydroxyzine HCl 25 mg Oral tab 1 tab at bedtime [Active]; latanoprost 0.005 % ophthalmic drop [Active]; levothyroxine 88 mcg tab 1 tab once daily [Active]; tizanidine 2 mg Oral cap 3 TIMES A DAY [Active]; temisartan 80mg [Active]; simvastatin 10 mg Oral tab 1 tab once daily [Active]; repaglinide 2 mg Oral tab 1 tab 3 times per day [Active]; proglitazone 30mg daily [Active]; morantik 25mg [Active]; - PMHx: 14:36 Diabetes - NIDDM; Hyperlipidemia; Thyroid problem; Hypertension; mb9 - Immunization history:: Adult Immunizations up to date. - Infectious Disease History:: Denies. - Social history:: Smoking status: unknown. Screenin:38 [facility] ED Fall Risk Assessment (Adult) History of falling in the last 3 months, mb9 including since admission No falls in past 3 months (0 pts) Confusion or Disorientation No (0 pts) Intoxicated or Sedated No (0 pts) Impaired Gait No (0 pts) Mobility Assist Device Used No (0 pt) Altered Elimination No (0 pt) Score/Fall Risk Level 0 - 2 = Low Risk Oriented to surroundings, Maintained a safe environment, Educated pt \T\ family on fall prevention, incl call for assistance when getting out of bed. Abuse screen: Denies threats or abuse. Nutritional screening: No deficits noted. Tuberculosis screening: No symptoms or risk factors identified. Assessment: 15:09 General: Appears in no apparent distress. Behavior is calm, cooperative. Pain: mb9 Complains of pain in abdomen Pain radiates to LUQ and LLQ Pain currently is 6 out of 10 on a pain scale. Quality of pain is described as crampy, Pain began suddenly, Is intermittent, Aggravated by increased activity, repositioning, weight bearing. Neuro: Robert Agitation-Sedation Scale (RASS): 0 - Alert and Calm Level of Consciousness is awake, alert, obeys commands, Oriented to person, place, time, situation, Appropriate for age. Cardiovascular: Patient's skin is warm and dry. Respiratory: Airway is patent Respiratory effort is even, unlabored, Respiratory pattern is regular, symmetrical. GI: Abdomen is flat, non-distended, Bowel sounds present X 4 quads. Abd is soft Abdomen is tender to palpation in left upper quadrant and left lower quadrant Reports nausea. : No signs and/or symptoms were reported regarding the genitourinary system. EENT: No signs and/or symptoms were reported regarding the EENT system. Derm: Skin is pink, warm \T\ dry. Musculoskeletal: Range of motion: intact in all extremities. 16:15 Reassessment: No changes from previously documented assessment. Patient and/or family mb9 updated on plan of care and expected duration. Pain level reassessed. Patient is alert, oriented x 3, equal unlabored respirations, skin warm/dry/pink. Vital Signs: 14:36 BP 98 / 60; Pulse 74; Resp 16; Temp 98.2(TE); Pulse Ox 100% ; Weight 56.25 kg; Height 5 nj1 ft. 4 in. ; Pain 9/10; 15:24 BP 134 / 53; Pulse 58; Resp 16; Pulse Ox 98% ; mb9 16:44 BP 126 / 59; Pulse 66; Resp 18; Pulse Ox 99% on R/A; mb9 14:36 Body Mass Index 21.28 (56.25 kg, 162.56 cm) nj1 14:36 Pain Scale: Adult [facility] ED Course: 14:23 Patient arrived in ED. mg5 14:24 Windy Ross MD is Attending Physician. sd2 14:36 Eunice Fermin, RN is Primary Nurse. mb9 14:37 Arm band placed on. mb9 14:38 Triage completed. nj1 14:38 Placed in gown. Bed in low position. Call light in reach. Side rails up X 1. Provided mb9 Education on: press call light if needing anything. Client placed on continuous cardiac and pulse oximetry monitoring. NIBP monitoring applied. cafeteria monitor on. 14:55 Troponin High Sensitivity Sent. mb9 14:55 Lipase Sent. mb9 14:55 CMP Sent. mb9 14:55 CBC with Diff Sent. mb9 15:09 EKG done, by ED staff, reviewed by Windy Ross MD. Initial lab(s) drawn, by fl, mb9 sent to lab. Inserted saline lock: 22 gauge in right antecubital area, using aseptic technique. 15:10 No provider procedures requiring assistance completed. mb9 16:[address] via stretcher. mb9 16:31 CT Abd/Pelvis - IV Contrast Only In Process Unspecified. EDMS 16:31 CT Chest For PE Angio In Process Unspecified. EDMS 16:51 IV discontinued, intact, bleeding controlled, No redness/swelling at site. Pressure mb9 dressing applied. Administered Medications: 14:53 CANCELLED (Physician Discretion): ns 0.9% 500 ml IV at bolus once sd2 15:05 Drug: Ketorolac IVP 10 mg 10 mg IVP once Route: IVP; Site: right antecubital; mb9 15:36 Follow up: Response: No adverse reaction mb9 15:08 Drug: NS 0.9% IV 1000 ml IV at 1 bolus Per protocol; 1000 mL bolus Route: IV; Rate: 1 mb9 bolus; Site: right antecubital; 16:48 Follow up: Response: No adverse reaction; IV Status: Completed infusion mb9 15:09 Drug: Ondansetron IVP 4 mg IVP once; over 2 minutes Route: IVP; Site: right antecubital;mb9 15:36 Follow up: Response: No adverse reaction mb9 Medication: 14:38 VIS not applicable for this client. mb9 Outcome: 16:53 Discharge ordered by . sd2 17:01 Discharged to home ambulatory, mb9 17:01 Condition: stable 17:01 Discharge instructions given to patient, Instructed on discharge instructions, follow up and referral plans. Demonstrated understanding of instructions, follow-up care, medications, Prescriptions given X 2, 17:01 Patient left the ED. mb9 Signatures: Dispatcher [employer] EDMS Windy Ross MD MD sd2 Eunice Fermin RN RN mb9 Kori Gomes RN RN nj1 Kimberley Salamanca mg5
--- NOTE | 2023-10-17 16:53 | EDPHYS ---
Physician Documentation [facility] Name: Eunice Seals Age: 83 yrs Sex: Female : 1940 Arrival Date: 10/17/2023 Time: 14:12 Bed 20 Private MD: BERTHA Physician Windy Ross HPI: 10/16 14:53 This 83 yrs old Black Female presents to ER via Wheelchair with complaints of Abdominal sd2 Pain. 14:53 83-year-old female presents with chief complaint of left upper quadrant abdominal pain sd2 that started Sunday. She reports it has been constant since then and not improved she reports prior to this, she had a surgery on September 04 for her back and has been constipated since then until it "broke loose" on Sunday the day before her pain started. She denies any associated fever, vomiting or diarrhea but does endorse nausea. She denies any urinary symptoms.. . Historical: - Allergies: 14:36 Lipitor; mb9 14:36 metformin; mb9 14:36 PENICILLINS; mb9 - Home Meds: 14:36 amlodipine 10 mg tab 1 tab once daily [Active]; aspirin 81 mg Oral chew 1 tab [Active]; mb9 ezetimibe Oral 10mg daily [Active]; hydroxyzine HCl 25 mg Oral tab 1 tab at bedtime [Active]; latanoprost 0.005 % ophthalmic drop [Active]; levothyroxine 88 mcg tab 1 tab once daily [Active]; tizanidine 2 mg Oral cap 3 TIMES A DAY [Active]; temisartan 80mg [Active]; simvastatin 10 mg Oral tab 1 tab once daily [Active]; repaglinide 2 mg Oral tab 1 tab 3 times per day [Active]; proglitazone 30mg daily [Active]; morantik 25mg [Active]; - PMHx: 14:36 Diabetes - NIDDM; Hyperlipidemia; Thyroid problem; Hypertension; mb9 - Immunization history:: Adult Immunizations up to date. - Infectious Disease History:: Denies. - Social history:: Smoking status: unknown. ROS: 14:53 Constitutional: Negative for fever, chills, and weight loss, Eyes: Negative for injury, sd2 pain, redness, and discharge, Cardiovascular: Negative for chest pain, palpitations, and edema, Respiratory: Negative for shortness of breath, cough, wheezing. 14:53 Back: Negative for injury and pain, MS/Extremity: Negative for injury and deformity, Skin: Negative for injury, rash, and discoloration, Neuro: Negative for headache, numbness and tingling. 14:53 Abdomen/GI: Positive for abdominal pain, nausea, diarrhea, constipation, Negative for vomiting, Exam: 14:53 Constitutional: This is a well developed, well nourished patient who is awake, alert, sd2 and in no acute distress. Head/Face: Normocephalic, atraumatic. Eyes: EOMI, normal conjunctiva bilaterally Chest/axilla: Normal chest wall appearance and motion. Nontender with no deformity. Cardiovascular: Regular rate and rhythm with a normal S1 and S2. No gallops, murmurs, or rubs. 2+ distal pulses. Respiratory: Lungs have equal breath sounds bilaterally, clear to auscultation and percussion. No rales, rhonchi or wheezes noted. No increased work of breathing, no retractions or nasal flaring. Abdomen/GI: Soft, LUQ TTP, with normal bowel sounds. No guarding or rebound. Skin: Warm, dry with normal turgor. Normal color with no rashes, no lesions, and no evidence of cellulitis. MS/ Extremity: Pulses equal, no cyanosis. Neurovascular intact. Full, normal range of motion. Psych: Awake, alert, with orientation to person, place and time. Behavior, mood, and affect are within normal limits. 15:16 ECG was reviewed by the Attending Physician. Sinus bradycardia, rate 54, no STEMI sd2 criteria, new RBBB compared to prior EKG in 2019 Vital Signs: 14:36 BP 98 / 60; Pulse 74; Resp 16; Temp 98.2(TE); Pulse Ox 100% ; Weight 56.25 kg; Height 5 nj1 ft. 4 in. ; Pain 9/10; 15:24 BP 134 / 53; Pulse 58; Resp 16; Pulse Ox 98% ; mb9 16:44 BP 126 / 59; Pulse 66; Resp 18; Pulse Ox 99% on R/A; mb9 14:36 Body Mass Index 21.28 (56.25 kg, 162.56 cm) nj1 14:36 Pain Scale: Adult nj1 MDM: 14:51 Patient medically screened. sd2 14:53 Differential Diagnosis. Data reviewed: vital signs, nurses notes. I considered the sd2 following discharge prescriptions or medication management in the emergency department Medications were administered in the Emergency Department. See MAR. 16:50 Care significantly affected by the following chronic conditions: Diabetes, sd2 Hypertension. Counseling: I had a detailed discussion with the patient and/or guardian regarding the historical points, exam findings, and any diagnostic results supporting the discharge/admit diagnosis, lab results, radiology results, the need for outpatient follow up, to return to the emergency department if symptoms worsen or persist or if there are any questions or concerns that arise at home. ED course: Labs and imaging reviewed. Labs grossly WNCL. Trop neg. EKG with no ischemic changes. CTA with no evidence of PE and CTAP with no significant findings. Benign abdominal exam and patient feeling improved after treatment. Likely related to recent constipation issues that are now improving. Pt comfortable with plan for discharge and outpatient follow up. Verbalizes understanding of discharge plan and strict return precautions.. 10/16 14:53 Order name: CBC with Diff; Complete Time: 16:15 sd2 10/16 14:53 Order name: CMP; Complete Time: 16:15 sd2 10/16 14:53 Order name: Lipase; Complete Time: 16:15 sd2 10/16 14:53 Order name: Troponin High Sensitivity; Complete Time: 16:15 sd2 10/16 14:53 Order name: Urinalysis W/Microscopic sd2 10/16 14:53 Order name: CT Abd/Pelvis - IV Contrast Only; Complete Time: 16:42 sd2 10/16 15:15 Order name: CT Chest For PE Angio; Complete Time: 16:42 sd2 10/16 14:53 Order name: EKG - Nurse/Tech; Complete Time: 15:09 sd2 Administered Medications: 14:53 CANCELLED (Physician Discretion): ns 0.9% 500 ml IV at bolus once sd2 15:05 Drug: Ketorolac IVP 10 mg 10 mg IVP once Route: IVP; Site: right antecubital; mb9 15:36 Follow up: Response: No adverse reaction mb9 15:08 Drug: NS 0.9% IV 1000 ml IV at 1 bolus Per protocol; 1000 mL bolus Route: IV; Rate: 1 mb9 bolus; Site: right antecubital; 16:48 Follow up: Response: No adverse reaction; IV Status: Completed infusion mb9 15:09 Drug: Ondansetron IVP 4 mg IVP once; over 2 minutes Route: IVP; Site: right antecubital;mb9 15:36 Follow up: Response: No adverse reaction mb9 Disposition Summary: 10/17/23 16:53 Discharge Ordered Problem: new sd2 Symptoms: have improved sd2 Condition: Stable sd2 Diagnosis - Abdominal pain, unspecified sd2 - Nausea sd2 - Diarrhea, unspecified sd2 Followup: sd2 - With: Private Physician - When: 2 - 3 days - Reason: Recheck today's complaints, Continuance of care, Re-evaluation by your physician Discharge Instructions: - Discharge Summary Sheet sd2 - Abdominal Pain, Adult sd2 - Diarrhea, Adult sd2 - Nausea, Adult sd2 Forms: - Medication Reconciliation Form sd2 - Antibiotic Education sd2 - Prescription Opioid Use sd2 - Patient Portal Instructions sd2 - Leadership Thank You Letter sd2 Prescriptions: - ondansetron 4 mg Oral Tablet,disintegrating - take 1 tablet ORAL route every 6 hours As needed; 15 tablet; Refills: 0, sd2 Product Selection Permitted - dicyclomine 20 mg Oral tablet - take 1 tablet ORAL route every 6 hours As needed Take as needed for abdominal sd2 cramping; 15 tablet; Refills: 0, Product Selection Permitted Signatures: Dispatcher [employer] Windy Kelsey MD MD sd2 Eunice Fermin RN RN mb9 Kori Gomes RN RN nj1 Corrections: (The following items were deleted from the chart) 14:53 14:53 NS 0.9% IV 500 ml IV at bolus once ordered. sd2 sd2 15:16 15:16 Chest For PE Angio+CT.RAD.BRZ ordered. EDMS EDMS
[2023-10-17 17:00] LABS: Specific Gravity > 1.030 (1.005-1.030); Sqamous Epithelial <5 /HPF (None Seen); Urine Bacteria <20 /HPF (<20); Urine Bilirubin NEGATIVE (Negative); Urine Blood 1+ (Negative); Urine Clarity Turbid (Clear); Urine Color Light-Yellow (Yellow); Urine Culture Reflex Order NOT NEEDED; Urine Glucose NEGATIVE (Negative); Urine Ketones NEGATIVE (Negative); Urine Micro Reflex YN NO BILL MICROSCOPIC; Urine Mucus 1+ /HPF (None Seen); Urine Nitrite NEGATIVE (Negative); Urine Protein 1+ (Negative); Urine RBC <5 /HPF (None Seen); Urine Urobilinogen Normal (Normal)
[2023-10-17 17:19] VITALS: BP 126/59; TEMP 98.2; O2SAT 99
--- NOTE | 2023-10-19 14:41 | EKG ---
Test Date: 2023-10-17 Test Time: 15:05:55 [place]: MB MEASUREMENT RESULTS: Intervals: Rate: 54 TN: 130 QRSD: 130 QT: 490 QTc: 464 [place]: P: 80 TN: 130 QRS: -62 T: 52 INTERPRETIVE STATEMENTS: Sinus bradycardia Left axis deviation Right bundle branch block Anterior infarct, age undetermined Abnormal ECG Compared to ECG 06/03/2019 04:27:16 Left-axis deviation now present Right bundle-branch block now present Myocardial infarct finding now present Sinus rhythm no longer present Atrial abnormality no longer present Electronically Signed On 10-19-23 14:38:48 CDT by Daniel Troncoso
== END 2023-10-17 17:01 | disposition home or self-care (01) ==
LOC: ER 14:12
DX: R10.12 Left upper quadrant pain (principal); R19.7 Diarrhea, unspecified; R11.0 Nausea; Z88.0 Allergy status to penicillin; Z91.048 Other nonmedicinal substance allergy status; Z79.82 Long term (current) use of aspirin
CPT/HCPCS: 96361; 93005; 85025; 81001; 36415; 84484; 83690; 80053; 71275; 74177; 96375; 96374; 99285; Q9967; J2405; J7030